=== PATIENT | male | born 1950 | race Caucasian/White ===

== ENCOUNTER → 2024-10-18 | Outpatient (BNVA) | payer OTHER, SELFPAY | END | disposition home or self-care (01) | PROVIDERS: PCP Family Medicine; Referring Provider Family Medicine; Visit Provider Urology | DX: C61 Malignant neoplasm of prostate (principal); Z90.79 Acquired absence of other genital organ(s); R32 Unspecified urinary incontinence; N52.9 Male erectile dysfunction, unspecified; Z92.3 Personal history of irradiation; Z87.891 Personal history of nicotine dependence; E03.9 Hypothyroidism, unspecified | CPT/HCPCS: 99212; G0463 ==

== ENCOUNTER → 2024-11-25 | Outpatient (CLI) | payer OTHER, SELFPAY ==
[2024-11-25 08:45] LABS: Prostate Specific Antigen < 0.10 ng/mL (0-4.00)
== END | disposition home or self-care (01) ==
LOC: COPL 07:36
PROVIDERS: PCP Family Medicine; Referring Provider Urology; Visit Provider Urology
DX: C61 Malignant neoplasm of prostate (principal)
CPT/HCPCS: 36415; 84153

== ENCOUNTER 2024-12-02 08:54 | Outpatient (RCR) | payer OTHER, SELFPAY ==
--- NOTE | 2024-12-01 09:45 | CTCFLWUP_ITS ---
[facility] [address] [place], [place] [address] FOLLOW-UP NOTE Date: 12/01/2024 MR#: [id number] Name: KEVIN LYNN : 1950 Dx: C61 Malignant neoplasm of prostate Identification. 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 Postop radiation therapy completed 6840 cGy 05/06/2024 along with Lupron injections 3 doses so far. Most recent blood test 11/25/2024 less than 0.10. Patient is happy with the low PSA reading but would like to stop the injections after the 4 which wou ld make it about a years worth of Lupron. Does not like the side effects. He is willing to get PSA checked regularly and resume Lupron if needed. I will see him again in 3 months with PSA check. Electronically signed by: Demetrio Doherty M.D. 12/01/2024 9:43 AM
== END 2024-12-17 23:59 | disposition home or self-care (01) ==
LOC: SCTC 08:54
PROVIDERS: PCP Family Medicine; Referring Provider Family Medicine; Visit Provider Radiology Therapeutic Radiology
DX: Z51.11 Encounter for antineoplastic chemotherapy (principal); C61 Malignant neoplasm of prostate; Z90.79 Acquired absence of other genital organ(s); Z92.3 Personal history of irradiation
CPT/HCPCS: 96402; 99213; J9217; G0463

== ENCOUNTER → 2025-02-23 | Outpatient (CLI) | payer OTHER, SELFPAY ==
[2025-02-23 09:50] LABS: Free T4 (Free Thyroxine) 1.28 ng/dL (0.89-1.76); Prostate Specific Antigen < 0.10 ng/mL (0-4.00)
[2025-02-28 06:42] LABS: T3,Total* 192 ng/dL (76-181)
== END | disposition home or self-care (01) ==
LOC: COPL 08:48
PROVIDERS: PCP Family Medicine; Referring Provider Urology; Visit Provider Nurse Practitioner Family
DX: C61 Malignant neoplasm of prostate (principal); E03.9 Hypothyroidism, unspecified
CPT/HCPCS: 36415; 84153; 84439; 84443; 84480

== ENCOUNTER → 2025-03-01 | Outpatient (BNVA) | payer OTHER, SELFPAY | END | disposition home or self-care (01) | PROVIDERS: PCP Family Medicine; Referring Provider Family Medicine; Visit Provider Urology | DX: C61 Malignant neoplasm of prostate (principal); Z90.79 Acquired absence of other genital organ(s); Z92.3 Personal history of irradiation; R32 Unspecified urinary incontinence; N52.9 Male erectile dysfunction, unspecified; E03.9 Hypothyroidism, unspecified | CPT/HCPCS: 81003; 99212; G0463 ==

== ENCOUNTER 2025-03-02 08:07 | Outpatient (RCR) | payer OTHER, SELFPAY ==
--- NOTE | 2025-03-02 08:51 | CTCFLWUP_ITS ---
[facility] [address] [place], [place] [address] FOLLOW-UP NOTE Date: 03/02/2025 MR#: [id number] Name: KEVIN LYNN : 1950 Dx: C61 Malignant neoplasm of prostate Identification. Patient with group 3 pT3bN1 prostate CA status post robotic prostatectomy [facility] 01/06/2024. Postop radiation completed 6840 cGy 05/06/2024 with Lupron injections 4 doses thus far. Most recent PSA less than 0.10 on 02/23/2025. BP today . Patient would like to be on break for any more Lupron shots. Told patient to see MD regarding high BP. Patient apparently not on any meds. Will stop Lupron shots and see him again in 4 months with another PSA. Electronically signed by: Demetrio Doherty M.D. 03/02/2025 8:48 AM
== END 2025-03-16 23:59 | disposition home or self-care (01) ==
LOC: SCTC 08:07
PROVIDERS: PCP Family Medicine; Referring Provider Radiology Therapeutic Radiology; Visit Provider Radiology Therapeutic Radiology
DX: C61 Malignant neoplasm of prostate (principal); Z90.79 Acquired absence of other genital organ(s); Z92.3 Personal history of irradiation
CPT/HCPCS: 99213; G0463

== ENCOUNTER → 2025-06-08 | Outpatient (CLI) | payer OTHER, SELFPAY ==
[2025-06-08 09:53] LABS: Prostate Specific Antigen < 0.10 ng/mL (0-4.00)
== END | disposition home or self-care (01) ==
LOC: SCTO 08:32
PROVIDERS: PCP Family Medicine; Referring Provider Urology; Visit Provider Radiology Therapeutic Radiology
DX: R97.20 Elevated prostate specific antigen [PSA] (principal); C61 Malignant neoplasm of prostate
CPT/HCPCS: 36415; 84153

== ENCOUNTER → 2025-06-14 | Outpatient (BNVA) | payer OTHER, SELFPAY | END | disposition home or self-care (01) | PROVIDERS: PCP Urology; Referring Provider Urology; Visit Provider Urology | DX: C61 Malignant neoplasm of prostate (principal); R32 Unspecified urinary incontinence; N52.9 Male erectile dysfunction, unspecified; Z92.3 Personal history of irradiation; Z90.79 Acquired absence of other genital organ(s); E03.9 Hypothyroidism, unspecified | CPT/HCPCS: 99212; G0463 ==

== ENCOUNTER 2025-06-29 07:31 | Outpatient (RCR) | payer OTHER, SELFPAY ==
--- NOTE | 2025-06-29 08:45 | CTCFLWUP_ITS ---
[facility] [address] [place], [place] [address] FOLLOW-UP NOTE Date: 06/29/2025 MR#: [id number] Name: KEVIN LYNN : 1950 Dx: C61 Malignant neoplasm of prostate Identification. Patient with group 3 pT3bN1 C of the prostate prostatectomy [facility] 01/06/2024. Postop radiotherapy 6040 centigrade completed 05/06/2020 for Lupron injections 4 doses or 1 years worth Patient wished to be on a break from Lupron injections due to concern for side effects. Patient's PSA 06/08/2025 less than 0.10 Still has some residual hot flashes from the prior Lupron and wants to continue be on break. Will see him in 3 months with another PSA. Electronically signed by: Demetrio Doherty M.D. 06/29/2025 8:43 AM
== END 2025-07-17 23:59 | disposition home or self-care (01) ==
LOC: SCTC 07:31
PROVIDERS: PCP Family Medicine; Referring Provider Radiology Therapeutic Radiology; Visit Provider Radiology Therapeutic Radiology
DX: C61 Malignant neoplasm of prostate (principal); Z90.79 Acquired absence of other genital organ(s); Z92.3 Personal history of irradiation; Z79.818 Long term (current) use of other agents affecting estrogen receptors and estrogen levels
CPT/HCPCS: 99213; G0463

== ENCOUNTER → 2025-07-07 | Outpatient (CLI) | payer OTHER, SELFPAY ==
--- NOTE | 2025-07-07 09:08 | XR_ITS ---
Examination: PA lateral chest 2 views TECHNIQUE: Upright PA lateral chest 2 views Date and time: July 07, 2025 1042 hours, comparison October 11, 2019 INDICATIONS: Coughing 2 months. FINDINGS: Normal heart size. No pneumonia or pulmonary edema. Old left-sided rib fractures IMPRESSION: No active disease
[2025-07-07 11:05] LABS: Quantiferon-TB* See Sep Rpt
[2025-07-07 11:35] LABS: Basophils # (Auto) 0.0 Thou/mm3 (0.0-0.2); Basophils % (Auto) 1 % (0-2.5); Eosinophils # (Auto) 0.3 Thou/mm3 (0.0-0.5); Eosinophils % (Auto) 6 % (0-10); Hematocrit 36.3 % (41.0-53.0); Hemoglobin 12.1 g/dL (13.5-16.0); Immature Granulocytes Auto 0.01 Thou/mm3 (0.00-0.00); Lymphocytes # (Auto) 1.6 Thou/mm3 (1.0-4.8); Lymphocytes % (Auto) 31 % (10-50); Mean Corpuscular HGB Conc 33.3 g/dl (31.0-37.0); Mean Corpuscular Hemoglobin 31.0 pg (25.0-35.0); Mean Corpuscular Volume 93 fL (80-100); Monocytes # (Auto) 0.5 Thou/mm3 (0.0-0.8); Monocytes % (Auto) 10 % (0-12); Neutrophils # (Auto) 2.6 Thou/mm3 (1.8-7.7); Neutrophils % (Auto) 52 % (37-80); Nucleated Red Blood Cell # 0.00 Thou/mm3 (0.00-0.00); Nucleated Red Blood Cell % 0 /100 WBC (0); Platelet Count 153 Thou/mm3 (140-440); RDW Standard Deviation 44.5 fL (35.1-43.9); Red Blood Count 3.90 Miln/mm3 (4.50-5.90); White Blood Count 5.0 Thou/mm3 (3.8-10.6)
[2025-07-07 11:58] LABS: Alanine Aminotransferase 9 U/L (10-49); Albumin, Serum 4.5 gm/dL (3.4-4.8); Albumin/Globulin Ratio 1.7 (1.2-2.2); Alkaline Phosphatase 104 U/L (46-116); Anion Gap 9 (7-16); Aspartate Amino Transferase 21 U/L (0-34); BUN/Creatinine Ratio 13 Ratio (12-20); Bilirubin,Total 0.8 mg/dL (0.3-1.2); Blood Urea Nitrogen 15 mg/dL (9-23); Calcium 10.3 mg/dL (8.3-10.6); Calcium (Corrected) 10.3 mg/dL (8.5-10.1); Carbon Dioxide 28.0 mMol/L (20.0-31.0); Chloride 103 mMol/L (98-107); Creatinine (Component) 1.2 mg/dL (0.6-1.3); Globulin 2.7 gm/dL (2.3-3.5); Glucose 97 mg/dL (74-106); Osmolality,Calculated 280 (275-295); Potassium 4.4 mMol/L (3.4-5.1); Sodium 140 mMol/L (136-145); Total Protein 7.2 gm/dL (5.7-8.2); eGFR > 60 See Note
[2025-07-08 12:00] LABS: Cocci Serology, IgM Negative (Negative)
[2025-07-09 14:38] LABS: Cocci Serology, IgG Negative (Negative)
[2025-07-19 07:09] LABS: Testosterone, Free,Dialysis 16.1 pg/mL (30.0-135.0); Testosterone, Total, Dialysis 174 ng/dL (250-1100)
== END | disposition home or self-care (01) ==
LOC: CDIM 08:56 → COPL 11:00
PROVIDERS: PCP Nurse Practitioner Family; Referring Provider Nurse Practitioner Family; Visit Provider Radiology Diagnostic Radiology
DX: R05.3 Chronic cough (principal); E29.1 Testicular hypofunction
CPT/HCPCS: 36415; 71046; 80053; 84402; 84403; 85025; 86331; 86480; 86635

== ENCOUNTER → 2025-09-23 | Outpatient (CLI) | payer OTHER, SELFPAY ==
[2025-09-23 09:45] LABS: Prostate Specific Antigen < 0.10 ng/mL (0-4.00)
== END | disposition home or self-care (01) ==
LOC: COPL 08:24
PROVIDERS: PCP Family Medicine; Referring Provider Radiology Therapeutic Radiology; Visit Provider Radiology Therapeutic Radiology
DX: R97.20 Elevated prostate specific antigen [PSA] (principal)
CPT/HCPCS: 36415; 84153

== ENCOUNTER 2025-09-29 08:07 | Outpatient (RCR) | payer OTHER, SELFPAY ==
--- NOTE | 2025-09-30 08:08 | CTCFLWUP_ITS ---
[facility] [address] [place], [place] [address] FOLLOW-UP NOTE Date: 09/29/2025 MR#: [id number] Name: KEVIN LYNN : 1950 Dx: C61 Malignant neoplasm of prostate Identification. Patient with group 3 pT3b B N1c of prostate prostatectomy 01/06/2024. Postop radiation 6840 cGy completed 05/06/2024 with Lupron injections 4 doses or 1 years worth. Wish to be on break from Lupron injection due to concern for side effects. Patient's PSA has remained low including the most recent one on 09/23/2025. Patient feeling well and wants to continue with the observation rather than receiving any more Lupron injections. I will see him in 6 months with another PSA prior. Electronically signed by: Demetrio Doherty M.D. 09/30/2025 8:06 AM
== END 2025-10-16 23:59 | disposition home or self-care (01) ==
LOC: SCTC 08:07
PROVIDERS: PCP Family Medicine; Referring Provider Family Medicine; Visit Provider Radiology Therapeutic Radiology
DX: C61 Malignant neoplasm of prostate (principal); Z90.79 Acquired absence of other genital organ(s); Z92.3 Personal history of irradiation
CPT/HCPCS: 99212; G0463

== ENCOUNTER → 2025-10-18 | Outpatient (BNVA) | payer OTHER, SELFPAY | END | disposition home or self-care (01) | PROVIDERS: PCP Urology; Referring Provider Urology; Visit Provider Urology | DX: R32 Unspecified urinary incontinence (principal); C61 Malignant neoplasm of prostate; Z92.3 Personal history of irradiation; Z90.79 Acquired absence of other genital organ(s) | CPT/HCPCS: 81003; 99212; G0463 ==